=== PATIENT | male | born 1935 | race African-American/Black ===

== ENCOUNTER 2016-10-28 16:41 | Emergency (ER) | payer MEDICARE, OTHER ==
--- NOTE | ~2016-10-28 | CR72 ---
[facility] A Service of [facility] RADIOLOGY TEXT RESULTS PATIENT: ARDHA HODGES LOCATION: [facility] : 39 UNIT #: [id number] AGE: [address]: Lamine Menon MD SEX: M ORDER DR: [id number] [facility] [address] [place], [place] [address] [id number] E MR#: [id number] #: [id number] NAME: RADHA HODGES : 1935 SEX: M STUDY DATE/TIME: 10/28/2016 17:30 UNIT: [facility] ROOM: STUDY DESCRIPTION: CR Chest Single View Portable Attending Physician: Lamine Menon Ordering Physician: Ed Doc Lázaro Arana Primary Care Physician: Primary Care Physician No MEDICAL IMAGING REPORT This report is preliminary unless electronic signature is present EXAM AP view of the chest COMPARISON December 29, [address] chest dated December 30, 2012 INDICATIONS 72-year-old male with dyspnea and altered mental status today. Prior stroke. History of hypertension and diabetes. FINDINGS There is poor inspiratory effort. Calcified granulomas are noted in the right lung. No convincing evidence of pneumothorax. There are slightly increased opacities in the left lung base which may reflect atelectasis. There is eventration of the right hemidiaphragm, stable from CT 10/16/2012. Trace left pleural effusion cannot be excluded. IMPRESSION Low lung volumes with minimal increased opacities in the left lung base favoring atelectasis. Trace left pleural effusion cannot be excluded. Correlation to exclude signs of pneumonia recommended. Dictated by... Anthony Clemente M.D. THIS IS AN ELECTRONICALLY VERIFIED REPORT Anthony Clemente M.D. at 11/02/2016 10:37 PM BLM/to TD: 10/29/2016 13:08 JOB #: [id number] [facility] A Service of [facility] RADIOLOGY TEXT RESULTS PATIENT: RADHA HODGES LOCATION: [facility] : 39 UNIT #: [id number] AGE: [address]: Lamine Menon MD SEX: M ORDER DR: MEDICAL IMAGING REPORT Page 1 of 1 COPY
--- NOTE | ~2016-10-28 | EKG ---
PATIENT: RADHA HODGES UNIT #: [id number] Ventricular Rate: 56 BPM Atrial Rate: 56 BPM P-R Interval: 194 ms QRS Duration: 92 ms Q-T Interval: 448 ms QTC Calculation(Bezet): 432 ms P Aurora: 43 degrees Calculated R Aurora: -15 degrees Calculated T Aurora: -98 degrees Diagnosis Line: Sinus bradycardia with sinus arrhythmia Baseline Diagnosis Line: wander Diagnosis Line: Voltage criteria for left ventricular hypertrophy Diagnosis Line: ST and T wave abnormality, consider inferolateral Diagnosis Line: ischemia Diagnosis Line: Abnormal ECG Diagnosis Line: When compared with ECG of 29-DEC-2012 16:42, Diagnosis Line: ST now depressed in Inferior leads Diagnosis Line: T wave inversion now evident in Inferior leads Diagnosis Line: Confirmed by KARLOS BEGUM MD ([id number]) on 10/31/2016 Diagnosis Line: 1:51:58 PM INTERPRETING MD: KEL CLEMENS
--- NOTE | ~2016-10-28 | CT71 ---
[facility] A Service of [facility] RADIOLOGY TEXT RESULTS PATIENT: RADHA HODGES LOCATION: [facility] : 39 UNIT #: [id number] AGE: [address]: Lamine Menon MD SEX: M ORDER DR: [id number] [facility] [address] [place], [place] [address] [id number] E MR#: [id number] #: [id number] NAME: RADHA HODGES : 1935 SEX: M STUDY DATE/TIME: 10/28/2016 18:33 UNIT: [facility] ROOM: STUDY DESCRIPTION: CT Head Wo Contrast Attending Physician: Wyatt Menon M.D. Ordering Physician: Simon Carolina M.D. Primary Care Physician: Primary Care Physician No MEDICAL IMAGING REPORT This report is preliminary unless electronic signature is present EXAM Noncontrast head CT HISTORY Increasing confusion today per long term. History of prior strokes. COMPARISON Head CT 12/29/2012. FINDINGS This CT examination was performed with one or more of the following radiation dose reduction techniques: automatic exposure control, adjustment of mA and/or kV according to patient size, and iterative reconstruction. Axial noncontrast imaging of the brain demonstrates generalized atrophy. Extensive encephalomalacia noted in the right posterior medial temporal lobe and left cerebellum. There is evidence of bilateral basal ganglia lacunar infarcts. No hemorrhage, mass, mass effect or midline shift. Bony calvarium, skull base, mastoids and sinuses unremarkable. IMPRESSION No acute intracranial abnormality identified. Generalized atrophy with evidence of multifocal prior ischemia and infarcts involving the right posterior temporal lobe, left cerebellar lobe and bilateral basal ganglia lacunar infarcts. Study unchanged from 12/29/2012. Dictated by... Alana Aguilera M.D. THIS IS AN ELECTRONICALLY VERIFIED REPORT Alana Aguilera M.D. at 11/01/2016 7:19 AM [facility] A Service of [facility] RADIOLOGY TEXT RESULTS PATIENT: RADHA HODGES LOCATION: [facility] : 39 UNIT #: [id number] AGE: [address]: Lamine Menon MD SEX: M ORDER DR: MARILOU/burke TD: 10/29/2016 13:46 JOB #: [id number] MEDICAL IMAGING REPORT Page 1 of 1 COPY
[~2016-10-28 16:41] MED LIST: AQUAPHOR HEALING OIN TOP; BUMEX2 MG PO; CALTRATE-600/VI1 TA1 PO; CATAPRES0.1 MG PO; FAST RELIEF LAX10 MG RC; FERROUS SULFATE PO; HYDROCODON-ACE1 EAC5 PO; IPRAT-ALBUT 0.5-3 ML IH; LACTULOSE10 G/15 M1 PO; LANTUS100 U/ML SUBQ; LEXAPRO20 MG PO; MAGIC BUTT CREAM TOP; METOPROLOL TAR25 MG PO; NEURONTIN100 MG PO; NORVASC10 MG PO; NOVOLIN R100 UNITS/ INJ; PLAVIX PO; POTASSIUM CHLO10 ME1 PO; PRILOSEC20 M1 PO; RISAMINE OINTM113 GM TP; SENEXON-S TABL1 EACH PO; TYLENOL325 M1 PO; [UNRECOGNIZED DRUG - OTHER] PO; [UNRECOGNIZED DRUG - OTHER] TOP
[2016-10-28 18:11] LABS: BASOPHIL% 0.5 % (0-2.5); EOSINOPHIL# 0.3 X10e3 (0-0.7); EOSINOPHIL% 4.4 % (0.0-7.0); HEMATOCRIT 34.5 % (38.0-50.0); HEMOGLOBIN 11.2 gm/dL (13.0-16.0); LYMPHOCYTE# 1.9 X10e3 (1.0-3.5); LYMPHOCYTE% 29.4 % (17.0-45.0); MEAN CELL VOLUME 84.2 FL (83-96); MEAN CORPUSCULAR HEMOGLOBIN 27.4 PG (28-34); MEAN CORPUSCULAR HGB CONC 32.5 g/dL (30-36); MEAN PLATELET VOLUME 8.2 FL (6.5-11.5); MONOCYTE# 0.8 X10e3 (0-1.0); MONOCYTE% 12.5 % (3.0-12.0); NEUTROPHIL# 3.5 X10e3 (1.5-7.1); NEUTROPHIL% 53.2 % (40-75); PLATELET COUNT 232 X10e3 (140-420); RED CELL DISTRIBUTION WIDTH 16.4 % (11.0-15.5); WHITE BLOOD COUNT 6.5 X10e3 (4.0-10.5)
[2016-10-28 18:12] LABS: DIFF IND NO
[2016-10-28 18:23] LABS: ALBUMIN SERUM 3.1 g/dL (3.5-5.0); BILIRUBIN, DIRECT 0.1 mg/dL (0.0-0.2); BILIRUBIN,INDIRECT 0.1 mg/dL (0.0-0.9); BILIRUBIN,TOTAL 0.2 mg/dL (0.2-2.0); BUN/CREATININE RATIO 18.18; CALCIUM SERUM 8.7 mg/dL (8.4-10.2); CREATININE SERUM 1.1 mg/dL (0.6-1.4); GLOM FILT RATE Estimated 74.1 mL/min (>60); POTASSIUM 3.9 mmol/L (3.5-5.1)
== END 2016-10-28 23:05 | disposition short-term general hospital (02) ==
LOC: CED 16:41
PROVIDERS: Emergency Medicine
DX: N39.0 Urinary tract infection, site not specified (principal); R41.82 Altered mental status, unspecified; I10 Essential (primary) hypertension; Z86.73 Personal history of transient ischemic attack (TIA), and cerebral infarction without residual deficits; Z98.890 Other specified postprocedural states
CPT/HCPCS: 36415; 70450; 71010; 80048; 80076; 82947; 85025; 93005; 96365; 99285; J1956